=== PATIENT | female | born 1985 ===

== ENCOUNTER 2021-07-28 11:30 | Inpatient (IN) | payer OTHER ==
[2021-08-07] MEDS ORDERED: STELARA90 MG/1 ML (09:02)
== END 2021-08-11 18:48 | disposition home or self-care (01) | DRG 331 ==
LOC: SURH 07-31 07:00 → O/R 08-07 05:38 → SURH 08-07 05:38
PROVIDERS: Surgery; ADMIT Colon & Rectal Surgery; ATTEND Colon & Rectal Surgery
PROC: 07BC4ZX Excision of Pelvis Lymphatic, Percutaneous Endoscopic Approach, Diagnostic (ICD-10-PCS; 2021-08-07)
PROC: 0WQF4ZZ Repair Abdominal Wall, Percutaneous Endoscopic Approach (ICD-10-PCS; 2021-08-07)
PROC: 0T7D8DZ Dilation of Urethra with Intraluminal Device, Via Natural or Artificial Opening Endoscopic (ICD-10-PCS; 2021-08-07)
PROC: 3E0F7SF Introduction of Other Gas into Respiratory Tract, Via Natural or Artificial Opening (ICD-10-PCS; 2021-08-07)
PROC: 0DTF4ZZ Resection of Right Large Intestine, Percutaneous Endoscopic Approach (ICD-10-PCS; principal; 2021-08-07 06:00)
PROC: 0DBB4ZZ Excision of Ileum, Percutaneous Endoscopic Approach (ICD-10-PCS; 2021-08-07 06:00)
DX: K50.012 Crohn's disease of small intestine with intestinal obstruction (principal); K43.9 Ventral hernia without obstruction or gangrene; R59.0 Localized enlarged lymph nodes; Z20.822 Contact with and (suspected) exposure to COVID-19